=== PATIENT | male | born 1965 | race Caucasian/White ===

== ENCOUNTER 2019-01-23 09:13 | Inpatient (IN) | payer MEDICARE, BC ==
[2019-01-23 10:33] LABS: ADD MAN DIFF? NO
[2019-01-23 10:36] LABS: ABNORMAL IP MESSAGE 1; BASOPHILS % 0.3 % (0.0-2.0); EOSINOPHILS # 0.1 10^3/ul (0.0-0.5); HEMATOCRIT 30.8 % (42.0-52.0); HEMOGLOBIN 9.3 g/dl (14.0-18.0); LYMPHOCYTES # 0.5 10^3/ul (0.8-2.9); LYMPHOCYTES % 15.3 % (15.0-51.0); MEAN CORPUSCULAR HEMOGLOBIN 24.5 pg (29.0-33.0); MEAN CORPUSCULAR HGB CONC 30.2 g/dl (32.0-37.0); MEAN CORPUSCULAR VOLUME 81.3 fl (82.0-101.0); MEAN PLATELET VOLUME 10.9 fl (7.4-10.4); MONOCYTE # 0.3 10^3/ul (0.3-0.9); MONOCYTES % 8.5 % (0.0-11.0); NEUTROPHIL # 2.5 10^3/ul (1.6-7.5); NEUTROPHILS % 71.9 % (39.0-77.0); PLATELET COUNT 88 10^3/UL (140-415); POSITIVE DIFF @See below; RED BLOOD COUNT 3.79 10^6/ul (4.70-6.10); RED CELL DISTRIBUTION WIDTH 16.8 % (11.5-14.5)
[2019-01-23 10:36] LABS: WHITE BLOOD COUNT 3.5 10^3/ul (4.8-10.8)
[2019-01-23] MEDS: HYDROmorphONE 1 MG/ML SYG IV (10:39)
[2019-01-23] MEDS: ONDANSETRON 4 MG INJ IV (10:39)
[2019-01-23 10:56] LABS: ALANINE AMINOTRANSFERASE 37 IU/L (13-69); ALBUMIN 2.8 g/dl (3.3-4.9); ALBUMIN/GLOBULIN RATIO 0.66; ALKALINE PHOSPHATASE 217 IU/L (42-121); ANION GAP 4 (5-13); ASPARTATE AMINO TRANSFERASE 78 IU/L (15-46); BILIRUBIN,INDIRECT 0.9 mg/dl (0-1.1); BILIRUBIN,TOTAL 0.9 mg/dl (0.2-1.3); BLOOD UREA NITROGEN 11 mg/dl (7-20); CALCIUM 8.6 mg/dl (8.4-10.2); CARBON DIOXIDE 27 mmol/L (21-31); CHLORIDE 108 mmol/L (97-110); CREATININE 0.75 mg/dl (0.61-1.24); Estimated GFR > 60 mL/min (>60); GLUCOSE 95 mg/dl (70-220); POTASSIUM 3.8 mmol/L (3.5-5.1); SODIUM 139 mmol/L (135-144)
[2019-01-23] MEDS: ERTAPENEM SODIUM 1 GM in SOD CHLORIDE 0.9% 100 ML IVPB (10:58)
[2019-01-23 11:24] LABS: ANISOCYTOSIS 2+ (0-0); BAND NEUTROPHILS % (M) 1 % (0-4); BASOPHILS % (M) 1 % (0-2); ELLIPTO 1+ (0-0); EOSINOPHILS % (M) 1 % (0-7); HYPOCHROMASIA 1+ (0-0); LYMPHOCYTES #M 0.7 10^3/ul (0.8-2.9); LYMPHOCYTES % (M) 22 % (15-51); METAMYELOCYTES %M 1 % (0-0); MICROCYTOSIS 2+ (0-0); MONOCYTES % (M) 1 % (0-11); OVALOCYTES 1+ (0-0); PLATELET ESTIMATE DECREASED; POIKILOCYTOSIS 2+ (0-0); POLYCHROMASIA 3+ (0-0); PROMYELOCYTES % (M) 1 % (0-0); REACTIVE LYMPHOCYTES% (M) 2 % (0-0); SEG NEUT #M 2.5 10^3/ul (1.6-7.5); SEGMENTED NEUTROPHILS (M) % 70 % (39-77)
[2019-01-23] MEDS ORDERED: ACETAMINOPHEN 325 MG TAB PO ×2 (13:00→14:30)
[2019-01-23] MEDS ORDERED: ONDANSETRON 4 MG INJ IV (13:00)
[2019-01-23] MEDS ORDERED: QUETIAPINE 100 MG TAB PO (13:30)
[2019-01-23] MEDS ORDERED: INSULIN GLARGINE [LANTus] (100 UNITS/ML) SYG SC (14:30)
[2019-01-23] MEDS ORDERED: DOCUSATE SODIUM 100 MG CAP PO (14:30)
[2019-01-23] MEDS ORDERED: NACL 0.9% 3 ML SYG IV (14:30)
[2019-01-23] MEDS: INSULIN ASPART [NOVOLOG] 3 ML PEN SC ×2 (18:00→20:59)
[2019-01-23] MEDS: CLINDAMYCIN 900 MG/D5W (PMX) 50 ML IVPB (18:32)
[2019-01-23] MEDS ORDERED: GLUCOSE GEL 15 GRAM TUBE BUCCAL (19:00)
[2019-01-23] MEDS ORDERED: GLUCOSE GEL 15 GRAM TUBE PO ×2 (19:00)
[2019-01-23] MEDS ORDERED: GLUCAGON 1 MG INJ IM (19:00)
[2019-01-23] MEDS ORDERED: DEXTROSE 50% 50 ML SYRINGE IV ×2 (19:00)
[2019-01-23] MEDS ORDERED: METHADONE 10 MG TAB PO (20:00)
[2019-01-23] MEDS: morphine 2 MG INJ IV (20:56)
[2019-01-23] MEDS ORDERED: BUSPIRONE 10 MG TAB PO (21:00)
[2019-01-23] MEDS: DOXAZOSIN 2 MG TAB PO (21:42)
[2019-01-23] MEDS: BUSPIRONE 5 MG TAB PO (21:42)
[2019-01-23] MEDS: BUPROPION 100 MG TAB PO (21:43)
[2019-01-24] MEDS: CLINDAMYCIN 900 MG/D5W (PMX) 50 ML IVPB ×5 (00:05→23:46)
[2019-01-24] MEDS: ACCU-CHEK XX (01:47)
[2019-01-24 05:26] LABS: ADD MAN DIFF? NO
[2019-01-24] MEDS: PANTOPRAZOLE (EC) 40 MG TAB PO (06:04)
[2019-01-24 06:13] LABS: ALANINE AMINOTRANSFERASE 35 IU/L (13-69); ALBUMIN 2.5 g/dl (3.3-4.9); ALBUMIN/GLOBULIN RATIO 0.65; ALKALINE PHOSPHATASE 179 IU/L (42-121); ANION GAP 8 (5-13); BILIRUBIN,INDIRECT 0.7 mg/dl (0-1.1); BILIRUBIN,TOTAL 0.7 mg/dl (0.2-1.3); BLOOD UREA NITROGEN 13 mg/dl (7-20); CALCIUM 8.1 mg/dl (8.4-10.2); CARBON DIOXIDE 28 mmol/L (21-31); CHLORIDE 107 mmol/L (97-110); CHOL/HDL RATIO 3.3 RATIO; CHOLESTEROL 91 mg/dl (100-200); CREATININE 0.75 mg/dl (0.61-1.24); Estimated GFR > 60 mL/min (>60); GLUCOSE 95 mg/dl (70-220); HDL CHOLESTEROL 27 mg/dl (28-71); LDL CHOLESTEROL,CALCULATED 51 mg/dl; MAGNESIUM 1.6 mg/dl (1.7-2.5); POTASSIUM 4.3 mmol/L (3.5-5.1); SODIUM 143 mmol/L (135-144); TOTAL PROTEIN 6.3 g/dl (6.1-8.1); TRIGLYCERIDES 65 mg/dl (0-149)
[2019-01-24 06:14] LABS: ASPARTATE AMINO TRANSFERASE 76 IU/L (15-46)
[2019-01-24 06:46] LABS: WHITE BLOOD COUNT 2.6 10^3/ul (4.8-10.8)
[2019-01-24 06:46] LABS: ABNORMAL IP MESSAGE 1; BASOPHILS % 0.4 % (0.0-2.0); EOSINOPHILS # 0.1 10^3/ul (0.0-0.5); EOSINOPHILS % 5.3 % (0.0-7.0); HEMOGLOBIN 8.8 g/dl (14.0-18.0); LYMPHOCYTES # 0.6 10^3/ul (0.8-2.9); MEAN CORPUSCULAR HEMOGLOBIN 25.2 pg (29.0-33.0); MEAN CORPUSCULAR HGB CONC 30.3 g/dl (32.0-37.0); MEAN CORPUSCULAR VOLUME 83.1 fl (82.0-101.0); MEAN PLATELET VOLUME 11.1 fl (7.4-10.4); MONOCYTE # 0.3 10^3/ul (0.3-0.9); MONOCYTES % 10.2 % (0.0-11.0); NEUTROPHIL # 1.6 10^3/ul (1.6-7.5); NEUTROPHILS % 61.7 % (39.0-77.0); PLATELET COUNT 77 10^3/UL (140-415); POSITIVE DIFF @See below; RED BLOOD COUNT 3.49 10^6/ul (4.70-6.10); RED CELL DISTRIBUTION WIDTH 16.7 % (11.5-14.5)
[2019-01-24] MEDS: INSULIN ASPART [NOVOLOG] 3 ML PEN SC ×4 (08:00→21:00)
[2019-01-24] MEDS: BUSPIRONE 5 MG TAB PO ×2 (08:23→21:00)
[2019-01-24] MEDS: LOSARTAN 50 MG TAB PO (08:23)
[2019-01-24] MEDS: BUPROPION 100 MG TAB PO ×2 (08:23→21:00)
[2019-01-24] MEDS: metFORMIN 500 MG TAB PO (08:23)
[2019-01-24] MEDS: TOPIRAMATE 100 MG TAB PO (08:25)
[2019-01-24] MEDS: FUROSEMIDE 40 MG TAB PO (08:25)
[2019-01-24] MEDS: METHADONE 10 MG TAB PO (08:25)
[2019-01-24] MEDS: ENOXAPARIN 40 MG/0.4 ML SYG SC (08:26)
[2019-01-24] MEDS ORDERED: METHADONE 10 MG TAB PO (09:00)
[2019-01-24] MEDS: INSULIN GLARGINE [LANTus] (100 UNITS/ML) SYG SC (09:40)
[2019-01-24] MEDS: traMADol 50 MG TAB NGT (15:15)
[2019-01-24] MEDS: ISOSORBIDE MONONITRATE(SR)30 MG TAB PO (15:15)
[2019-01-24] MEDS: DOXAZOSIN 2 MG TAB PO (21:04)
[2019-01-25] MEDS: ACCU-CHEK XX (02:00)
[2019-01-25] MEDS: PANTOPRAZOLE (EC) 40 MG TAB PO (05:50)
[2019-01-25] MEDS: CLINDAMYCIN 900 MG/D5W (PMX) 50 ML IVPB ×3 (05:50→18:20)
[2019-01-25] MEDS: INSULIN GLARGINE [LANTus] (100 UNITS/ML) SYG SC ×2 (08:00→08:18)
[2019-01-25] MEDS: INSULIN ASPART [NOVOLOG] 3 ML PEN SC ×4 (08:00→21:00)
[2019-01-25] MEDS: metFORMIN 500 MG TAB PO (08:17)
[2019-01-25] MEDS: ENOXAPARIN 40 MG/0.4 ML SYG SC (08:50)
[2019-01-25] MEDS: TOPIRAMATE 100 MG TAB PO (08:53)
[2019-01-25] MEDS: ISOSORBIDE MONONITRATE(SR)30 MG TAB PO (08:53)
[2019-01-25] MEDS: BUPROPION 100 MG TAB PO ×2 (08:54→21:00)
[2019-01-25] MEDS: FUROSEMIDE 40 MG TAB PO (08:58)
[2019-01-25] MEDS: METHADONE 10 MG TAB PO (08:58)
[2019-01-25] MEDS: BUSPIRONE 5 MG TAB PO ×2 (09:00→21:00)
[2019-01-25] MEDS: LOSARTAN 50 MG TAB PO (09:00)
[2019-01-25] MEDS: traMADol 50 MG TAB NGT (11:11)
[2019-01-25] MEDS: HYDROmorphONE 2 MG TAB PO (18:33)
[2019-01-25] MEDS: DOXAZOSIN 2 MG TAB PO (22:08)
[2019-01-26] MEDS: CLINDAMYCIN 900 MG/D5W (PMX) 50 ML IVPB ×3 (00:59→12:54)
[2019-01-26] MEDS: ACCU-CHEK XX (01:59)
[2019-01-26] MEDS: PANTOPRAZOLE (EC) 40 MG TAB PO (05:48)
[2019-01-26] MEDS: INSULIN ASPART [NOVOLOG] 3 ML PEN SC ×4 (08:00→21:00)
[2019-01-26] MEDS: INSULIN GLARGINE [LANTus] (100 UNITS/ML) SYG SC (08:00)
[2019-01-26] MEDS: BUPROPION 100 MG TAB PO ×2 (08:34→20:57)
[2019-01-26] MEDS: LOSARTAN 50 MG TAB PO (08:34)
[2019-01-26] MEDS: BUSPIRONE 5 MG TAB PO ×2 (08:34→20:57)
[2019-01-26] MEDS: metFORMIN 500 MG TAB PO (08:35)
[2019-01-26] MEDS: ISOSORBIDE MONONITRATE(SR)30 MG TAB PO (08:35)
[2019-01-26] MEDS: METHADONE 10 MG TAB PO (08:39)
[2019-01-26] MEDS: FUROSEMIDE 40 MG TAB PO (08:39)
[2019-01-26] MEDS: TOPIRAMATE 100 MG TAB PO (08:40)
[2019-01-26] MEDS: ENOXAPARIN 40 MG/0.4 ML SYG SC (08:41)
[2019-01-26] MEDS ORDERED: VANCOMYCIN IV PER PHARMACY XX (14:00)
[2019-01-26] MEDS: HYDROmorphONE 2 MG TAB PO ×2 (15:12→20:40)
[2019-01-26] MEDS: VANCOMYCIN HCL 2 GM in SOD CHLORIDE 0.9% 500 ML IVPB (17:41)
[2019-01-26] MEDS: DOXAZOSIN 2 MG TAB PO (20:40)
[2019-01-27] MEDS ORDERED: VANCOMYCIN HCL 2 GM in SOD CHLORIDE 0.9% 500 ML IVPB
[2019-01-27] MEDS: ACCU-CHEK XX (02:00)
[2019-01-27] MEDS: VANCOMYCIN HCL 1.5 GM in SOD CHLORIDE 0.9% 250 ML IVPB ×2 (06:05→17:33)
[2019-01-27] MEDS: PANTOPRAZOLE (EC) 40 MG TAB PO (06:05)
[2019-01-27] MEDS: INSULIN ASPART [NOVOLOG] 3 ML PEN SC ×4 (08:00→20:42)
[2019-01-27] MEDS: INSULIN GLARGINE [LANTus] (100 UNITS/ML) SYG SC (08:00)
[2019-01-27] MEDS: ISOSORBIDE MONONITRATE(SR)30 MG TAB PO (08:29)
[2019-01-27] MEDS: LOSARTAN 50 MG TAB PO (08:29)
[2019-01-27] MEDS: METHADONE 10 MG TAB PO (08:29)
[2019-01-27] MEDS: metFORMIN 500 MG TAB PO (08:30)
[2019-01-27] MEDS: TOPIRAMATE 100 MG TAB PO (08:30)
[2019-01-27] MEDS: FUROSEMIDE 40 MG TAB PO (08:30)
[2019-01-27] MEDS: BUPROPION 100 MG TAB PO ×2 (08:30→20:48)
[2019-01-27] MEDS: BUSPIRONE 5 MG TAB PO ×2 (08:31→20:48)
[2019-01-27] MEDS: ENOXAPARIN 40 MG/0.4 ML SYG SC (08:31)
[2019-01-27 08:55] LABS: ABNORMAL IP MESSAGE 1; HEMATOCRIT 28.7 % (42.0-52.0); HEMOGLOBIN 8.9 g/dl (14.0-18.0); MEAN CORPUSCULAR HEMOGLOBIN 24.9 pg (29.0-33.0); MEAN CORPUSCULAR VOLUME 80.2 fl (82.0-101.0); MEAN PLATELET VOLUME 11.5 fl (7.4-10.4); PLATELET COUNT 60 10^3/UL (140-415); POSITIVE DIFF @See below; RED BLOOD COUNT 3.58 10^6/ul (4.70-6.10); RED CELL DISTRIBUTION WIDTH 16.6 % (11.5-14.5)
[2019-01-27 08:58] LABS: ADD MAN DIFF? YES
[2019-01-27 09:21] LABS: ALANINE AMINOTRANSFERASE 30 IU/L (13-69); ALBUMIN 2.4 g/dl (3.3-4.9); ALBUMIN/GLOBULIN RATIO 0.64; ALKALINE PHOSPHATASE 171 IU/L (42-121); ANION GAP 3 (5-13); ASPARTATE AMINO TRANSFERASE 75 IU/L (15-46); BILIRUBIN,INDIRECT 0.5 mg/dl (0-1.1); BILIRUBIN,TOTAL 0.5 mg/dl (0.2-1.3); BLOOD UREA NITROGEN 13 mg/dl (7-20); CARBON DIOXIDE 28 mmol/L (21-31); CHLORIDE 107 mmol/L (97-110); Estimated GFR > 60 mL/min (>60); GLUCOSE 89 mg/dl (70-220); POTASSIUM 3.9 mmol/L (3.5-5.1); SODIUM 138 mmol/L (135-144); TOTAL PROTEIN 6.1 g/dl (6.1-8.1)
[2019-01-27 09:40] LABS: ANISOCYTOSIS 1+ (0-0); BAND NEUTROPHILS % (M) 1 % (0-4); EOSINOPHILS % (M) 5 % (0-7); GIANT THROMBO% (M) 1 % (0-0); LYMPHOCYTES #M 0.4 10^3/ul (0.8-2.9); LYMPHOCYTES % (M) 20 % (15-51); METAMYELOCYTES #M 0.1 10^3/ul (0.0-0.0); METAMYELOCYTES %M 5 % (0-0); MICROCYTOSIS 1+ (0-0); MONOCYTES % (M) 1 % (0-11); MYELOCYTES % (M) 2 % (0-0); PLATELET ESTIMATE DECREASED; SEG NEUT #M 1.3 10^3/ul (1.6-7.5); SEGMENTED NEUTROPHILS (M) % 66 % (39-77); SMUDGE%M 2 % (0-0)
[2019-01-27] MEDS: DOXAZOSIN 2 MG TAB PO (20:43)
[2019-01-27] MEDS: HYDROmorphONE 2 MG TAB PO (20:45)
[2019-01-28] MEDS: ACCU-CHEK XX (01:11)
[2019-01-28] MEDS: PANTOPRAZOLE (EC) 40 MG TAB PO (05:24)
[2019-01-28 06:19] LABS: VANCOMYCIN,TROUGH 14.8 ug/ml (10.0-20.0)
[2019-01-28] MEDS: VANCOMYCIN HCL 1.5 GM in SOD CHLORIDE 0.9% 250 ML IVPB ×2 (07:00→18:38)
[2019-01-28] MEDS: INSULIN GLARGINE [LANTus] (100 UNITS/ML) SYG SC (08:00)
[2019-01-28] MEDS: INSULIN ASPART [NOVOLOG] 3 ML PEN SC ×4 (08:00→20:22)
[2019-01-28] MEDS: metFORMIN 500 MG TAB PO (08:10)
[2019-01-28] MEDS: METHADONE 10 MG TAB PO (08:53)
[2019-01-28] MEDS: FUROSEMIDE 40 MG TAB PO (08:54)
[2019-01-28] MEDS: TOPIRAMATE 100 MG TAB PO (08:54)
[2019-01-28] MEDS: ISOSORBIDE MONONITRATE(SR)30 MG TAB PO (08:54)
[2019-01-28] MEDS: LOSARTAN 50 MG TAB PO (08:55)
[2019-01-28] MEDS: BUPROPION 100 MG TAB PO ×2 (08:55→20:21)
[2019-01-28] MEDS: BUSPIRONE 5 MG TAB PO ×2 (08:59→20:21)
[2019-01-28] MEDS: FUROSEMIDE 40 MG INJ IV ×2 (14:23→18:38)
[2019-01-28] MEDS: DOXAZOSIN 2 MG TAB PO (20:20)
[2019-01-28] MEDS: HYDROmorphONE 2 MG TAB PO (20:20)
[2019-01-29] MEDS: PANTOPRAZOLE (EC) 40 MG TAB PO (05:28)
[2019-01-29] MEDS: VANCOMYCIN HCL 1.5 GM in SOD CHLORIDE 0.9% 250 ML IVPB (05:31)
[2019-01-29] MEDS: FUROSEMIDE 40 MG INJ IV ×2 (05:38→17:20)
[2019-01-29 06:10] LABS: ABNORMAL IP MESSAGE 1; HEMATOCRIT 28.5 % (42.0-52.0); HEMOGLOBIN 8.7 g/dl (14.0-18.0); MEAN CORPUSCULAR HEMOGLOBIN 24.5 pg (29.0-33.0); MEAN CORPUSCULAR HGB CONC 30.5 g/dl (32.0-37.0); MEAN CORPUSCULAR VOLUME 80.3 fl (82.0-101.0); PLATELET COUNT 57 10^3/UL (140-415); POSITIVE DIFF @See below; RED BLOOD COUNT 3.55 10^6/ul (4.70-6.10); RED CELL DISTRIBUTION WIDTH 16.3 % (11.5-14.5)
[2019-01-29 06:43] LABS: ADD MAN DIFF? YES; CREATININE 0.78 mg/dl (0.61-1.24)
[2019-01-29 06:43] LABS: BLOOD UREA NITROGEN 13 mg/dl (7-20)
[2019-01-29 06:53] LABS: ANION GAP 6 (5-13); BLOOD UREA NITROGEN 13 mg/dl (7-20); CARBON DIOXIDE 25 mmol/L (21-31); CHLORIDE 108 mmol/L (97-110); CREATININE 0.78 mg/dl (0.61-1.24); Estimated GFR > 60 mL/min (>60); GLUCOSE 103 mg/dl (70-220); POTASSIUM 3.5 mmol/L (3.5-5.1); SODIUM 139 mmol/L (135-144)
[2019-01-29 07:44] LABS: ANISOCYTOSIS 1+ (0-0); BAND NEUTROPHILS #M 0.1 10^3/ul (0.0-0.6); BAND NEUTROPHILS % (M) 5 % (0-4); EOSINOPHILS % (M) 7 % (0-7); GIANT THROMBO% (M) 2 % (0-0); LYMPHOCYTES #M 0.4 10^3/ul (0.8-2.9); LYMPHOCYTES % (M) 20 % (15-51); MICROCYTOSIS 1+ (0-0); MONOCYTES % (M) 3 % (0-11); MYELOCYTES % (M) 1 % (0-0); OVALOCYTES 1+ (0-0); PLATELET ESTIMATE DECREASED; POIKILOCYTOSIS 1+ (0-0); POLYCHROMASIA 1+ (0-0); SEG NEUT #M 1.3 10^3/ul (1.6-7.5); SEGMENTED NEUTROPHILS (M) % 64 % (39-77); SMUDGE%M 10 % (0-0)
[2019-01-29] MEDS: INSULIN ASPART [NOVOLOG] 3 ML PEN SC ×4 (08:00→20:42)
[2019-01-29] MEDS: INSULIN GLARGINE [LANTus] (100 UNITS/ML) SYG SC (08:00)
[2019-01-29] MEDS: metFORMIN 500 MG TAB PO (08:12)
[2019-01-29] MEDS: TOPIRAMATE 100 MG TAB PO (08:12)
[2019-01-29] MEDS: LOSARTAN 50 MG TAB PO (08:14)
[2019-01-29] MEDS: ISOSORBIDE MONONITRATE(SR)30 MG TAB PO (08:14)
[2019-01-29] MEDS: BUPROPION 100 MG TAB PO ×2 (08:14→20:42)
[2019-01-29] MEDS: METHADONE 10 MG TAB PO (08:19)
[2019-01-29] MEDS: HYDROmorphONE 2 MG TAB PO ×2 (08:21→20:44)
[2019-01-29] MEDS: BUSPIRONE 5 MG TAB PO ×2 (08:25→20:42)
[2019-01-29] MEDS: ONDANSETRON 4 MG INJ IV (09:10)
[2019-01-29] MEDS: CLINDAMYCIN 150 MG CAP PO ×2 (17:19→21:24)
[2019-01-29] MEDS: LIDOCAINE 1% (MPF) 5 ML VIAL SC (18:10)
[2019-01-29] MEDS: DOXAZOSIN 2 MG TAB PO (20:44)
[2019-01-30] MEDS: CLINDAMYCIN 150 MG CAP PO (05:21)
[2019-01-30] MEDS: PANTOPRAZOLE (EC) 40 MG TAB PO (05:21)
[2019-01-30] MEDS: FUROSEMIDE 40 MG INJ IV ×2 (06:38→17:32)
[2019-01-30 06:45] LABS: ANION GAP 7 (5-13); BLOOD UREA NITROGEN 14 mg/dl (7-20); CALCIUM 8.1 mg/dl (8.4-10.2); CARBON DIOXIDE 24 mmol/L (21-31); CHLORIDE 108 mmol/L (97-110); CREATININE 0.83 mg/dl (0.61-1.24); Estimated GFR > 60 mL/min (>60); GLUCOSE 118 mg/dl (70-220); POTASSIUM 3.5 mmol/L (3.5-5.1); SODIUM 139 mmol/L (135-144)
[2019-01-30] MEDS: INSULIN GLARGINE [LANTus] (100 UNITS/ML) SYG SC (08:00)
[2019-01-30] MEDS: INSULIN ASPART [NOVOLOG] 3 ML PEN SC ×4 (08:00→20:22)
[2019-01-30] MEDS: BUSPIRONE 5 MG TAB PO ×2 (09:00→20:21)
[2019-01-30] MEDS: BUPROPION 100 MG TAB PO ×2 (09:03→20:22)
[2019-01-30] MEDS: LOSARTAN 50 MG TAB PO (09:03)
[2019-01-30] MEDS: metFORMIN 500 MG TAB PO (09:04)
[2019-01-30] MEDS: METHADONE 10 MG TAB PO (09:05)
[2019-01-30] MEDS: ISOSORBIDE MONONITRATE(SR)30 MG TAB PO (09:06)
[2019-01-30] MEDS: TOPIRAMATE 100 MG TAB PO (09:08)
[2019-01-30] MEDS ORDERED: VANCOMYCIN IV PER PHARMACY XX (13:30)
[2019-01-30] MEDS: VANCOMYCIN HCL 1.5 GM in SOD CHLORIDE 0.9% 250 ML IVPB (15:40)
[2019-01-30] MEDS: DOXAZOSIN 2 MG TAB PO (20:19)
[2019-01-30] MEDS: HYDROmorphONE 2 MG TAB PO (20:20)
[2019-01-31] MEDS: PANTOPRAZOLE (EC) 40 MG TAB PO (06:00)
[2019-01-31] MEDS: INSULIN ASPART [NOVOLOG] 3 ML PEN SC ×4 (08:00→20:41)
[2019-01-31] MEDS: INSULIN GLARGINE [LANTus] (100 UNITS/ML) SYG SC (08:00)
[2019-01-31] MEDS: FUROSEMIDE 40 MG INJ IV ×2 (08:22→17:32)
[2019-01-31] MEDS: VANCOMYCIN HCL 1.5 GM in SOD CHLORIDE 0.9% 250 ML IVPB ×2 (08:23→20:20)
[2019-01-31] MEDS: TOPIRAMATE 100 MG TAB PO (08:26)
[2019-01-31] MEDS: metFORMIN 500 MG TAB PO (08:26)
[2019-01-31] MEDS: BUPROPION 100 MG TAB PO ×2 (08:26→20:41)
[2019-01-31] MEDS: ISOSORBIDE MONONITRATE(SR)30 MG TAB PO (08:26)
[2019-01-31] MEDS: LOSARTAN 50 MG TAB PO (08:26)
[2019-01-31] MEDS: METHADONE 10 MG TAB PO (08:28)
[2019-01-31] MEDS: BUSPIRONE 5 MG TAB PO ×2 (08:30→20:40)
[2019-01-31] MEDS: LIDOCAINE 1% (MPF) 5 ML VIAL SC (15:28)
[2019-01-31] MEDS: DOXAZOSIN 2 MG TAB PO (20:23)
[2019-02-01] MEDS: FUROSEMIDE 40 MG INJ IV (05:15)
[2019-02-01] MEDS: PANTOPRAZOLE (EC) 40 MG TAB PO (05:16)
[2019-02-01 06:39] LABS: BLOOD UREA NITROGEN 15 mg/dl (7-20)
[2019-02-01 06:39] LABS: CREATININE 0.77 mg/dl (0.61-1.24)
[2019-02-01] MEDS: INSULIN GLARGINE [LANTus] (100 UNITS/ML) SYG SC (08:00)
[2019-02-01] MEDS: INSULIN ASPART [NOVOLOG] 3 ML PEN SC ×2 (08:00→12:00)
[2019-02-01] MEDS: VANCOMYCIN HCL 1.5 GM in SOD CHLORIDE 0.9% 250 ML IVPB (08:14)
[2019-02-01] MEDS: BUPROPION 100 MG TAB PO (08:15)
[2019-02-01] MEDS: metFORMIN 500 MG TAB PO (08:15)
[2019-02-01] MEDS: BUSPIRONE 5 MG TAB PO ×2 (08:15→09:00)
[2019-02-01] MEDS: METHADONE 10 MG TAB PO (08:16)
[2019-02-01] MEDS: TOPIRAMATE 100 MG TAB PO (08:16)
[2019-02-01] MEDS: LOSARTAN 50 MG TAB PO (08:17)
[2019-02-01] MEDS: ISOSORBIDE MONONITRATE(SR)30 MG TAB PO (08:17)
[2019-02-01] MEDS: ONDANSETRON 4 MG INJ IV (10:11)
== END 2019-02-01 16:30 | disposition home health service (06) | DRG 603 ==
LOC: E/R 09:13 → PP2 12:33
DX: L03.116 Cellulitis of left lower limb (principal); D61.818 Other pancytopenia; Z68.43 Body mass index [BMI] 50.0-59.9, adult; F11.20 Opioid dependence, uncomplicated; I83.218 Varicose veins of right lower extremity with both ulcer of other part of lower extremity and inflammation; I83.228 Varicose veins of left lower extremity with both ulcer of other part of lower extremity and inflammation; E66.01 Morbid (severe) obesity due to excess calories; K74.60 Unspecified cirrhosis of liver; B95.7 Other staphylococcus as the cause of diseases classified elsewhere; E11.9 Type 2 diabetes mellitus without complications; L03.115 Cellulitis of right lower limb; I89.0 Lymphedema, not elsewhere classified; I10 Essential (primary) hypertension; F32.9 Major depressive disorder, single episode, unspecified; F17.200 Nicotine dependence, unspecified, uncomplicated; Z91.14 Patient's other noncompliance with medication regimen; Z79.4 Long term (current) use of insulin
CPT/HCPCS: 36415; 36569; 71045; 73630; 73630-LT; 73700; 76705; 76937; 80048; 80053; 80061; 80202; 82565; 82962; 83036; 83735; 84520; 85025; 87040; 87070; 87081; 93306; 96374; 96375; 99285-25

== ENCOUNTER 2019-02-27 08:53 | Emergency (ER) | payer MEDICARE, BC | END 2019-02-27 10:06 | disposition home or self-care (01) | LOC: E/R 08:53 | DX: K42.9 Umbilical hernia without obstruction or gangrene (principal); E11.9 Type 2 diabetes mellitus without complications; Z79.84 Long term (current) use of oral hypoglycemic drugs | CPT/HCPCS: 99282 ==

== ENCOUNTER 2019-03-31 11:54 | Emergency (ER) | payer MEDICARE, BC ==
[2019-03-31] MEDS: FUROSEMIDE 20 MG TAB PO (14:01)
[2019-03-31] MEDS: KETOROLAC 30 MG INJ IM (14:02)
[2019-03-31 15:06] LABS: ADD MAN DIFF? NO
[2019-03-31 15:10] LABS: WHITE BLOOD COUNT 8.3 10^3/ul (4.8-10.8)
[2019-03-31 15:10] LABS: BASOPHILS % 0.1 % (0.0-2.0); EOSINOPHILS # 0.1 10^3/ul (0.0-0.5); EOSINOPHILS % 0.6 % (0.0-7.0); HEMATOCRIT 29.9 % (42.0-52.0); HEMOGLOBIN 9.2 g/dl (14.0-18.0); LYMPHOCYTES % 11.8 % (15.0-51.0); MEAN CORPUSCULAR HEMOGLOBIN 25.3 pg (29.0-33.0); MEAN CORPUSCULAR HGB CONC 30.8 g/dl (32.0-37.0); MEAN CORPUSCULAR VOLUME 82.4 fl (82.0-101.0); MEAN PLATELET VOLUME 10.2 fl (7.4-10.4); MONOCYTE # 0.8 10^3/ul (0.3-0.9); MONOCYTES % 9.2 % (0.0-11.0); NEUTROPHIL # 6.5 10^3/ul (1.6-7.5); NEUTROPHILS % 77.9 % (39.0-77.0); PLATELET COUNT 110 10^3/UL (140-415); RED BLOOD COUNT 3.63 10^6/ul (4.70-6.10); RED CELL DISTRIBUTION WIDTH 18.5 % (11.5-14.5)
[2019-03-31 15:28] LABS: ALANINE AMINOTRANSFERASE 41 IU/L (13-69); ALBUMIN 2.5 g/dl (3.3-4.9); ALBUMIN/GLOBULIN RATIO 0.59; ALKALINE PHOSPHATASE 244 IU/L (42-121); ANION GAP 7 (5-13); ASPARTATE AMINO TRANSFERASE 102 IU/L (15-46); BILIRUBIN,INDIRECT 1.3 mg/dl (0-1.1); BILIRUBIN,TOTAL 1.3 mg/dl (0.2-1.3); BLOOD UREA NITROGEN 27 mg/dl (7-20); CALCIUM 8.2 mg/dl (8.4-10.2); CARBON DIOXIDE 27 mmol/L (21-31); CHLORIDE 105 mmol/L (97-110); CREATININE 1.57 mg/dl (0.61-1.24); Estimated GFR 47 mL/min (>60); GLUCOSE 94 mg/dl (70-220); LIPASE 245 U/L (23-300); POTASSIUM 4.9 mmol/L (3.5-5.1); SODIUM 139 mmol/L (135-144); TOTAL PROTEIN 6.7 g/dl (6.1-8.1)
[2019-03-31 15:39] LABS: INR 1.75; PROTIME 20.5 Sec (11.9-14.9); PT RATIO 1.6
[2019-03-31 15:40] LABS: PARTIAL THROMBOPLASTIN TIME 36.3 Sec (23.0-35.0)
[2019-03-31] MEDS ORDERED: LIDOCAINE 1% (MDV) 20 ML INJ (18:21)
[2019-03-31] MEDS: LIDOCAINE 1% (MPF) 5 ML VIAL (18:28)
== END 2019-03-31 21:04 | disposition home or self-care (01) ==
LOC: E/R 11:54
DX: K74.60 Unspecified cirrhosis of liver (principal); R18.8 Other ascites; N50.89 Other specified disorders of the male genital organs; I89.0 Lymphedema, not elsewhere classified; E11.9 Type 2 diabetes mellitus without complications; E66.01 Morbid (severe) obesity due to excess calories; Z68.43 Body mass index [BMI] 50.0-59.9, adult; Z79.84 Long term (current) use of oral hypoglycemic drugs
CPT/HCPCS: 76870; 80053; 83690; 85025; 85610; 85730; 96372; 99285-25

== ENCOUNTER 2019-05-02 11:27 | Emergency (ER) | payer SELFPAY, BC, MEDICARE | END 2019-05-02 12:51 | disposition left against medical advice (07) | LOC: E/R 11:27 | DX: Z53.21 Procedure and treatment not carried out due to patient leaving prior to being seen by health care provider (principal) ==

== ENCOUNTER 2019-07-05 09:07 | Inpatient (IN) | payer MEDICARE, BC ==
[2019-07-05 11:36] LABS: ADD MAN DIFF? NO
[2019-07-05 11:38] LABS: WHITE BLOOD COUNT 16.1 10^3/ul (4.8-10.8)
[2019-07-05 11:38] LABS: BASOPHILS % 0.2 % (0.0-2.0); EOSINOPHILS # 0.1 10^3/ul (0.0-0.5); EOSINOPHILS % 0.5 % (0.0-7.0); HEMATOCRIT 27.8 % (42.0-52.0); HEMOGLOBIN 9.1 g/dl (14.0-18.0); LYMPHOCYTES # 0.9 10^3/ul (0.8-2.9); LYMPHOCYTES % 5.6 % (15.0-51.0); MEAN CORPUSCULAR HEMOGLOBIN 31.2 pg (29.0-33.0); MEAN CORPUSCULAR HGB CONC 32.7 g/dl (32.0-37.0); MEAN CORPUSCULAR VOLUME 95.2 fl (82.0-101.0); MEAN PLATELET VOLUME 11.4 fl (7.4-10.4); MONOCYTES % 6.4 % (0.0-11.0); NEUTROPHILS % 86.8 % (39.0-77.0); PLATELET COUNT 112 10^3/UL (140-415); RED BLOOD COUNT 2.92 10^6/ul (4.70-6.10); RED CELL DISTRIBUTION WIDTH 15.4 % (11.5-14.5)
[2019-07-05 12:01] LABS: INR 1.94; PROTIME 22.2 Sec (11.9-14.9); PT RATIO 1.7
[2019-07-05 12:02] LABS: PARTIAL THROMBOPLASTIN TIME 37.2 Sec (23.0-35.0)
[2019-07-05 12:05] LABS: ALANINE AMINOTRANSFERASE 56 IU/L (13-69); ALBUMIN 2.7 g/dl (3.3-4.9); ALBUMIN/GLOBULIN RATIO 0.67; ALKALINE PHOSPHATASE 320 IU/L (42-121); ANION GAP 9 (5-13); ASPARTATE AMINO TRANSFERASE 124 IU/L (15-46); BILIRUBIN,INDIRECT 1.5 mg/dl (0-1.1); BLOOD UREA NITROGEN 74 mg/dl (7-20); CALCIUM 8.9 mg/dl (8.4-10.2); CARBON DIOXIDE 26 mmol/L (21-31); CHLORIDE 99 mmol/L (97-110); CREATININE 3.46 mg/dl (0.61-1.24); Estimated GFR 19 mL/min (>60); GLUCOSE 127 mg/dl (70-220); LIPASE 334 U/L (23-300); POTASSIUM 5.7 mmol/L (3.5-5.1); SODIUM 134 mmol/L (135-144); TOTAL PROTEIN 6.7 g/dl (6.1-8.1)
[2019-07-05] MEDS ORDERED: ACETAMINOPHEN 325 MG TAB PO ×2 (13:30→15:30)
[2019-07-05] MEDS ORDERED: ONDANSETRON 4 MG INJ IV (13:30)
[2019-07-05] MEDS: HYDROCODONE/APAP (5/325) TAB PO (15:25)
[2019-07-05] MEDS: morphine 2 MG INJ IV (15:25)
[2019-07-05] MEDS ORDERED: ZOLPIDEM 5 MG TAB PO (15:30)
[2019-07-05] MEDS ORDERED: NACL 0.9% 3 ML SYG IV (15:30)
[2019-07-05] MEDS ORDERED: DOCUSATE SODIUM 100 MG CAP PO (15:30)
[2019-07-05 15:41] LABS: ADD UMIC YES; UR ASCORBIC ACID NEGATIVE (NEGATIVE); UR BILIRUBIN (Dip) NEGATIVE (NEGATIVE); UR BLOOD (Dip) NEGATIVE (NEGATIVE); UR CLARITY CLEAR (CLEAR); UR COLOR AMBER (YELLOW); UR GLUCOSE (Dip) NEGATIVE (NEGATIVE); UR KETONES (Dip) NEGATIVE (NEGATIVE); UR LEUKOCYTE ESTERASE (Dip) TRACE Leu/ul (NEGATIVE); UR NITRITE (Dip) NEGATIVE (NEGATIVE); UR RBC 2 /HPF (0-5); UR SPECIFIC GRAVITY (Dip) 1.013 (1.003-1.030); UR TOTAL PROTEIN (Dip) NEGATIVE (NEGATIVE); UR UROBILINOGEN (Dip) 1+ mg/dL (NEGATIVE); UR WBC 9 /HPF (0-5)
[2019-07-05] MEDS ORDERED: HYDROmorphONE 2 MG TAB PO (16:30)
[2019-07-05] MEDS: ONDANSETRON 4 MG INJ IV (20:53)
[2019-07-05] MEDS: HYDROmorphONE 1 MG/ML SYG IV (20:53)
[2019-07-06] MEDS: HYDROmorphONE 1 MG/ML SYG IV ×3 (00:52→12:20)
[2019-07-06] MEDS: PANTOPRAZOLE (EC) 40 MG TAB PO (06:23)
[2019-07-06] MEDS: BUPROPION (XL) 150 MG TAB PO (08:10)
[2019-07-06] MEDS: ISOSORBIDE MONONITRATE(SR)30 MG TAB PO (08:11)
[2019-07-06] MEDS: THIAMINE 100 MG TAB PO (08:12)
[2019-07-06] MEDS: ZINC SULFATE 220 MG CAP PO (08:12)
[2019-07-06] MEDS: LOSARTAN 50 MG TAB PO (08:12)
[2019-07-06] MEDS: SPIRONOLACTONE 50 MG TAB PO (08:12)
[2019-07-06] MEDS: FUROSEMIDE 40 MG TAB PO (08:12)
[2019-07-06] MEDS: LIDOCAINE 1% (MPF) 5 ML VIAL (11:20)
== END 2019-07-06 16:50 | disposition hospice, home (50) | DRG 436 ==
LOC: E/R 09:07 → PP2 13:15
PROC: 0W9G3ZZ Drainage of Peritoneal Cavity, Percutaneous Approach (ICD-10-PCS; principal; 2019-07-06)
DX: C22.0 Liver cell carcinoma (principal); K76.6 Portal hypertension; E87.5 Hyperkalemia; K74.69 Other cirrhosis of liver; I89.0 Lymphedema, not elsewhere classified; I12.9 Hypertensive chronic kidney disease with stage 1 through stage 4 chronic kidney disease, or unspecified chronic kidney disease; F17.200 Nicotine dependence, unspecified, uncomplicated; N18.9 Chronic kidney disease, unspecified; B18.2 Chronic viral hepatitis C; Z79.891 Long term (current) use of opiate analgesic
CPT/HCPCS: 36415; 71045; 80053; 81001; 83690; 85025; 85610; 85730; 93005; 99285-25